=== PATIENT | female | born 1970 | race Two or more races ===

== ENCOUNTER 2016-10-29 03:26 | Observation (INO) | payer OTHER ==
[2016-10-29] MEDS ORDERED: SODIUM CHLORIDE 0.9% 1,000 ML IV STA (03:56)
[2016-10-29 04:11] LABS: Basophils # (A) 0.1 k/uL (0-0.2); Basophils % (A) 1 %; CH 31.8; CHCM 34.1; Eosinophils # (A) 0.1 k/uL (0-0.7); Eosinophils % (A) 1 %; HCT 42.2 % (34.0-46.0); HDW 2.39; HGB 13.8 gm/dL (11.4-16.0); Luc # (Auto) 0.19; Luc % (Auto) 2; Lymphocytes # (A) 3.3 k/uL (1.0-4.8); Lymphocytes % (A) 41 %; MCH 30.7 pg (25.0-35.0); MCHC 32.8 g/dL (31.0-37.0); MCV 93.6 fL (80.0-100.0); Mean Platelet Volume 8.5; Monocytes # (A) 0.4 k/uL (0-1.0); Monocytes % (A) 5 %; Neutrophils % (A) 50 %; RBC 4.51 m/uL (3.80-5.40); RDW 13.1 % (11.5-15.5); WBC (Perox) 8.57
--- NOTE | 2016-10-29 04:11 | ED ---
General Adult HPI - General Chief complaint: Chest Pain Stated complaint: LAILA Time Seen by Provider: 10/29/16 03:45 Source: patient, RN notes reviewed, old records reviewed Mode of arrival: wheelchair Limitations: no limitations - History of Present Illness Initial comments: This is a 38-year-old female the ER for evaluation of pain. Patient coming in for evaluation of chest pain chest pain left H her back and up into her jaw and jaw and down her arm. She also states pain comes a little bit on the left side of her chest. Patient has no history of similar chest pain, nonsmoker no high blood pressure no high cholesterol and no diabetes. Patient is noted to have no significant shortness of breath. No travel history no sick contacts no cough or congestion. Patient states her mother did not have a heart attack at a young age - Related Data Home Medications Medication Instructions Recorded Confirmed No Known Home Medications [No 10/29/16 10/29/16 Known Home Medications] Allergies Allergy/AdvReac Type Severity Reaction Status Date / Time No Known Allergies Allergy Verified 10/29/16 03:40 Review of Systems ROS Statement: Those systems with pertinent positive or pertinent negative responses have been documented in the HPI. ROS Other: All systems not noted in ROS Statement are negative. Past Medical History Past Medical History: No Reported History History of Any Multi-Drug Resistant Organisms: None Reported Additional Past Surgical History / Comment(s): tubal Past Psychological History: No Psychological Hx Reported Smoking Status: Never smoker Past Alcohol Use History: Occasional Past Drug Use History: None Reported General Exam Limitations: no limitations General appearance: alert, in no apparent distress, anxious Head exam: Present: atraumatic, normocephalic, normal inspection Eye exam: Present: normal appearance, PERRL, EOMI. Absent: scleral icterus, conjunctival injection, periorbital swelling ENT exam: Present: normal exam, mucous membranes moist Neck exam: Present: normal inspection. Absent: tenderness, meningismus, lymphadenopathy Respiratory exam: Present: normal lung sounds bilaterally. Absent: respiratory distress, wheezes, rales, rhonchi, stridor Cardiovascular Exam: Present: regular rate, normal rhythm, normal heart sounds. Absent: systolic murmur, diastolic murmur, rubs, gallop, clicks GI/Abdominal exam: Present: soft, normal bowel sounds. Absent: distended, tenderness, guarding, rebound, rigid Extremities exam: Present: normal inspection, full ROM, normal capillary refill. Absent: tenderness, pedal edema, joint swelling, calf tenderness Back exam: Present: normal inspection Neurological exam: Present: alert, oriented X3, CN II-XII intact Psychiatric exam: Present: normal affect, normal mood Skin exam: Present: warm, dry, intact, normal color. Absent: rash Course Vital Signs 10/29/16 10/29/16 03:36 04:15 Temperature 98.6 F Pulse Rate 116 H 69 Respiratory 20 14 Rate Blood Pressure 189/117 170/104 O2 Sat by Pulse 99 98 Oximetry - Reevaluation(s) Reevaluation #1: 10/29/16 05:54 Patient still remains with left-sided chest pain diaphoresis EKG Findings - EKG Comments: EKG Findings:: EKG shows normal sinus rhythm rate 93, AK 132, QRS 80, QTC 477 Medical Decision Making - Medical Decision Making Susan female here for evaluation of chest pain. Patient has positive family history for heart disease. Initial EKG and troponin are negative palpation be admitted for anticoagulation and cardiac evaluation. Sterile troponins and telemetry. CT was negative for PE - Lab Data Result diagrams: 10/29/16 03:50 10/29/16 03:50 Lab Results 10/29/16 10/29/16 10/29/16 Range/Units 03:50 03:50 03:50 WBC 8.0 (3.8-10.6) k/uL RBC 4.51 (3.80-5.40) m/uL Hgb 13.8 (11.4-16.0) gm/dL Hct 42.2 (34.0-46.0) % MCV 93.6 (80.0-100.0) fL MCH 30.7 (25.0-35.0) pg MCHC 32.8 (31.0-37.0) g/dL RDW 13.1 (11.5-15.5) % Plt Count 163 (150-450) k/uL Neutrophils % 50 % Lymphocytes % 41 % Monocytes % 5 % Eosinophils % 1 % Basophils % 1 % Neutrophils # 4.0 (1.3-7.7) k/uL Lymphocytes # 3.3 (1.0-4.8) k/uL Monocytes # 0.4 (0-1.0) k/uL Eosinophils # 0.1 (0-0.7) k/uL Basophils # 0.1 (0-0.2) k/uL PT (9.0-12.0) sec INR (<1.1) APTT (22.0-30.0) sec D-Dimer (<0.60) mg/L FEU Sodium 140 (137-145) mmol/L Potassium 3.2 L (3.5-5.1) mmol/L Chloride 109 H (98-107) mmol/L Carbon Dioxide 17 L (22-30) mmol/L Anion Gap 14 mmol/L BUN 11 (7-17) mg/dL Creatinine 0.70 (0.52-1.04) mg/dL Est GFR (MDRD) Af Amer >60 (>60 ml/min/1.73 sqM) Est GFR (MDRD) Non-Af >60 (>60 ml/min/1.73 sqM) Glucose 115 H (74-99) mg/dL Calcium 9.4 (8.4-10.2) mg/dL Magnesium 1.8 (1.6-2.3) mg/dL Total Bilirubin 0.9 (0.2-1.3) mg/dL AST 23 (14-36) U/L ALT 24 (9-52) U/L Alkaline Phosphatase 61 (38-126) U/L Total Creatine Kinase 57 (30-135) U/L CK-MB (CK-2) 0.3 (0.0-2.4) ng/mL CK-MB (CK-2) Rel Index 0.5 Troponin I <0.012 (0.000-0.034) ng/mL NT-Pro-B Natriuret Pep pg/mL Total Protein 7.3 (6.3-8.2) g/dL Albumin 4.3 (3.5-5.0) g/dL Lipase 182 (23-300) U/L 10/29/16 10/29/16 Range/Units 03:50 03:50 WBC (3.8-10.6) k/uL RBC (3.80-5.40) m/uL Hgb (11.4-16.0) gm/dL Hct (34.0-46.0) % MCV (80.0-100.0) fL MCH (25.0-35.0) pg MCHC (31.0-37.0) g/dL RDW (11.5-15.5) % Plt Count (150-450) k/uL Neutrophils % % Lymphocytes % % Monocytes % % Eosinophils % % Basophils % % Neutrophils # (1.3-7.7) k/uL Lymphocytes # (1.0-4.8) k/uL Monocytes # (0-1.0) k/uL Eosinophils # (0-0.7) k/uL Basophils # (0-0.2) k/uL PT 9.8 (9.0-12.0) sec INR 1.0 (<1.1) APTT 22.5 (22.0-30.0) sec D-Dimer 0.68 H (<0.60) mg/L FEU Sodium (137-145) mmol/L Potassium (3.5-5.1) mmol/L Chloride (98-107) mmol/L Carbon Dioxide (22-30) mmol/L Anion Gap mmol/L BUN (7-17) mg/dL Creatinine (0.52-1.04) mg/dL Est GFR (MDRD) Af Amer (>60 ml/min/1.73 sqM) Est GFR (MDRD) Non-Af (>60 ml/min/1.73 sqM) Glucose (74-99) mg/dL Calcium (8.4-10.2) mg/dL Magnesium (1.6-2.3) mg/dL Total Bilirubin (0.2-1.3) mg/dL AST (14-36) U/L ALT (9-52) U/L Alkaline Phosphatase (38-126) U/L Total Creatine Kinase (30-135) U/L CK-MB (CK-2) (0.0-2.4) ng/mL CK-MB (CK-2) Rel Index Troponin I (0.000-0.034) ng/mL NT-Pro-B Natriuret Pep 117 pg/mL Total Protein (6.3-8.2) g/dL Albumin (3.5-5.0) g/dL Lipase (23-300) U/L - Radiology Data Radiology results: report reviewed (Chest x-ray 2 view negative for acute disease, CTA negative for PE), image reviewed Critical Care Time Critical Care Time: Yes Total Critical Care Time: 31 Disposition Clinical Impression: Chest pain Disposition: ADMITTED IP TO THIS [facility] Condition: Good Instructions: Chest Pain (ED) Referrals: Martha Hooper MD [Primary Care Provider] - 1-2 days
[2016-10-29 04:20] LABS: ALT 24 U/L (9-52); AST 23 U/L (14-36); Alkaline Phosphatase 61 U/L (38-126); Anion Gap 14 mmol/L; Blood Urea Nitrogen 11 mg/dL (7-17); Calcium 9.4 mg/dL (8.4-10.2); Carbon Dioxide 17 mmol/L (22-30); Chloride 109 mmol/L (98-107); Glucose 115 mg/dL (74-99); Magnesium 1.8 mg/dL (1.6-2.3); Non-African American GFR(MDRD) >60 (>60 ml/min/1.73 sqM); Potassium 3.2 mmol/L (3.5-5.1); Sodium 140 mmol/L (137-145); Total Bilirubin 0.9 mg/dL (0.2-1.3); Total Protein 7.3 g/dL (6.3-8.2)
[2016-10-29 04:38] LABS: Partial Thromboplastin Time 22.5 sec (22.0-30.0); Prothrombin Time 9.8 sec (9.0-12.0)
[2016-10-29] MEDS ORDERED: POTASSIUM BICARB-CITRIC ACID 25 MEQ TABLET.EFF PO STA (04:49)
[2016-10-29] MEDS ORDERED: RX INFO: IV CONTRAST WAS GIVEN 1 EACH MISC MISCELLANE PRN (04:49)
[2016-10-29 05:00] LABS: Creatine Kinase 57 U/L (30-135)
[2016-10-29 05:13] LABS: Creatine Kinase MB 0.3 ng/mL (0.0-2.4); Troponin I <0.012 ng/mL (0.000-0.034)
--- NOTE | 2016-10-29 05:21 | XR ---
EXAMINATION TYPE: XR chest 2V DATE OF EXAM: 10/29/2016 4:42 AM COMPARISON: NONE HISTORY: Left-sided chest pain. TECHNIQUE: Frontal and lateral views of the chest are obtained. FINDINGS: There is no focal air space opacity, pleural effusion, or pneumothorax seen. The cardiac silhouette size is within normal limits. The osseous structures are intact. IMPRESSION: No acute cardiopulmonary process.
--- NOTE | 2016-10-29 05:34 | CT ---
EXAMINATION TYPE: CT angio chest DATE OF EXAM: 10/29/2016 5:10 AM COMPARISON: NONE HISTORY: Left sided chest pain, elevated d-dimer, R/O PE CT DLP: 148.40 mGycm Automated exposure control for dose reduction was used. CONTRAST: CTA scan of the thorax is performed with IV Contrast, patient injected with 65ml injected 35ml wasted mL of Omnipaque 350, pulmonary embolism protocol. MIP images are created and reviewed. 3D reconstr ucted images are created on an independent workstation and reviewed. FINDINGS: LUNGS: The lungs are grossly clear, there is no concerning parenchymal mass or nodule identified. T here is no pleural effusion or pneumothorax seen. The tracheobronchial tree is patent. MEDIASTINUM: There is satisfactory enhancement of the pulmonary artery and its branches, there is no CT evidence for pulmonary embolism. There are no greater than 1 cm hilar or mediastinal lymph nodes. No pericardial effusion is seen. Ascending aorta measures 3.2 cm in greatest AP diameter without s ignificant aneurysm. OTHER: No additional significant abnormality is seen. IMPRESSION: NO EVIDENCE OF ACUTE PULMONARY EMBOLISM. NO ACTIVE LUNG INFILTRATES.
[2016-10-29] MEDS ORDERED: HEPARIN SODIUM,PORCINE 5,000 UNIT/ML 1 ML VIAL IV ONE (05:51)
[2016-10-29] MEDS ORDERED: ASPIRIN 81 MG CHEW PO STA (05:51)
[2016-10-29] MEDS ORDERED: HEPARIN SODIUM,PORCINE 5,000 UNIT/ML 1 ML VIAL IV PRN (05:51)
[2016-10-29] MEDS ORDERED: MORPHINE SULFATE 2 MG/ML SYRINGE IVP STA (05:51)
[2016-10-29] MEDS ORDERED: MORPHINE SULFATE 4 MG/ML SYRINGE IV PRN (05:51)
[2016-10-29] MEDS ORDERED: LABETALOL SYRINGE 5 MG/ML IVP STA (05:55)
[2016-10-29] MEDS ORDERED: HEPARIN SODIUM,PORCINE/D5W PMX 25,000 UNIT in DEXTROSE/WATER 1 500ML.BAG IV SCH (06:00)
[2016-10-29] MEDS ORDERED: SODIUM CHLORIDE 0.9% 1,000 ML IV SCH (06:00)
[2016-10-29] MEDS: NITROGLYCERIN SL TABS 0.4 MG TAB SUBLINGUAL PRN ×2 (07:31→11:03)
[2016-10-29 11:03] LABS: Creatine Kinase 45 U/L (30-135)
--- NOTE | 2016-10-29 11:13 | P.CRDCN ---
History of Present Illness Consult date: 10/29/16 History of present illness: This is a 46-year-old female with no significant past medical history woke up around 3:00 last night with complaints of pain in the left shoulder and also in the back radiating down the arm and also to the upper chest area. The pain was about 7 on scale of 1-10. This was associated mild nausea and sweating. He doesn't appear to be respirophasic and did not change with the movements of the shoulder or arm in intensity. Patient was brought to the hospital and at about 8:00 in the morning patient was treated with sublingual nitro with relief of pain. Patient was also found to be very hypertensive. Her first EKG showed mild ST-T abnormalities in the inferolateral leads. Second EKG however showed normal findings. The 1 st troponin was within normal limits and at the time of my examination, patient claims the pain is coming back and rated as 4 on a scale of 1-10. We're in the process of treating her with sublingual nitroglycerin. May get a repeat EKG. We'll get bedside echocardiogram also. In the second troponin is normal and echocardiogram doesn't show any segmental wall motion defects, we may consider doing a nuclear stress test or stress echo for further evaluation. However if the troponin is abnormal or the echo cardiogram showed any segmental wall motion defects, patient may need cardiac catheterization for definitive diagnosis. Patient was also slightly hypokalemic and has received supplements . Review of Systems As per HPI Past Medical History Past Medical History: No Reported History Additional Past Medical History / Comment(s): Possibly chron's dx, hemorrhoids, HTN with . History of Any Multi-Drug Resistant Organisms: None Reported Past Surgical History: Tubal Ligation Additional Past Surgical History / Comment(s): R tubal with oophorectomy, anal abscess/fistula Past Anesthesia/Blood Transfusion Reactions: Postoperative Nausea & Vomiting ( PONV) Past Psychological History: No Psychological Hx Reported Additional Psychological History / Comment(s): Pt resides with her spouse and 4 children, one who is under the age of 18yrs. She is independent. Smoking Status: Never smoker Past Alcohol Use History: Occasional Past Drug Use History: None Reported - Past Family History Father Family Medical History: Cancer Additional Family Medical History / Comment(s): Father had colon cancer with mets. He of this at the age of 79yrs. Mother Family Medical History: Myocardial Infarction (NE) Additional Family Medical History / Comment(s): Mother had a NE at the age of 84 yrs. She is now 91yrs old. Medications and Allergies Home Medications Medication Instructions Recorded Confirmed Type No Known Home Medications [No 10/29/16 10/29/16 History Known Home Medications] Allergies Allergy/AdvReac Type Severity Reaction Status Date / Time No Known Allergies Allergy Verified 10/29/16 07:37 Physical Exam Vitals: Vital Signs Pulse Resp BP Pulse Ox 10/29/16 09:19 18 10/29/16 08:06 64 18 160/91 98 10/29/16 06:13 70 16 169/69 98 10/29/16 06:05 74 18 184/108 99 Intake and Output 10/28/16 10/29/16 10/29/16 22:59 06:59 14:59 Other: # Voids 1 GENERAL EXAM: Patient is alert and oriented and doesn't appear to be in any acute distress HEENT: Normocephalic. Normal reaction of pupils, equal size, normal range of extraocular motion. No erythema or exudates in the throat. NECK: No masses, no nuchal rigidity. CHEST: No chest wall deformity. LUNGS: Equal air entry with no crackles or wheeze. HEART: S1 and S2 normal with no audible mumurs or gallops. Regular rhythm, femorals equal on both sides.. ABDOMEN: No hepatosplenomegaly, normal bowel sounds, no guarding or rigidity. SKIN: No rashes CENTRAL NERVOUS SYSTEM: No focal deficits. EXTREMITIES: No cyanosis, clubbing or edema. Results 10/29/16 03:50 10/29/16 03:50 Current Medications Generic Name Dose Route Start Last Admin Trade Name Freq PRN Reason Stop Dose Admin Aspirin 325 mg 10/30/16 09:00 Aspirin PO DAILY [facility] Atorvastatin Calcium 80 mg 10/29/16 09:00 Lipitor PO DAILY [facility] Heparin Sodium (Porcine) 0 unit 10/29/16 05:51 Heparin IV PER PROTOCOL PRN Low PTT Protocol Sodium Chloride 1,000 mls @ 100 mls/hr 10/29/16 03:56 10/29/16 04:12 Saline 0.9% IV 10/29/16 13:55 100 mls/hr .Q10H STA Administration Heparin Sodium/Dextrose 25,000 500 mls @ 14.15 mls/hr 10/29/16 06:00 07:20 unit/ IV Solution IV 12 units/kg/hr .Q24H KATHLEEN 14.15 mls/hr Protocol Administration 12 UNITS/KG/HR Sodium Chloride 1,000 mls @ 100 mls/hr 10/29/16 06:00 Saline 0.9% IV .Q10H KATHLEEN Lisinopril 5 mg 10/30/16 09:00 Zestril PO DAILY KATHLEEN Metoprolol Tartrate 25 mg 10/29/16 09:00 Lopressor PO BID KATHLEEN Miscellaneous Information 1 each 10/29/16 04:49 Rx Info: Iv Contrast Was Given MISCELLANE 10/31/16 04:49 DAILY PRN Per Protocol Morphine Sulfate 4 mg 10/29/16 05:51 Morphine Sulfate (Inj) IV Q4HR PRN Chest Pain Nitroglycerin 0.4 mg 10/29/16 05:51 10/29/16 11:03 Nitrostat SUBLINGUAL 0.4 mg Q5M PRN Administration Chest Pain Intake and Output 10/28/16 10/29/16 10/29/16 22:59 06:59 14:59 Other: # Voids 1 EKG Interpretations (text) First EKG showed sinus rhythm with mild ST-T abnormalities in inferolateral leads. Second EKG showed normal findings Assessment and Plan (1) Hypokalemia Status: Acute (2) Chest pain Status: Acute (3) Hypertension Status: Acute Plan: We'll treat her with nitrates. Patient also needs beta blockers and possibly RASHMI inhibitor for control of her blood pressure and will get bedside echocardiogram. Further recommendations depend upon clinical course. If the troponins become positive or if echo cardiac rhythm shows any segmental wall motions, patient may need a cardiac cath. If not stress test to be considered
[2016-10-29 11:16] LABS: Creatine Kinase MB 0.2 ng/mL (0.0-2.4); Troponin I <0.012 ng/mL (0.000-0.034)
[2016-10-29] MEDS ORDERED: ONDANSETRON 4 MG/2 ML VIAL IVP PRN (13:20)
[2016-10-29 16:41] LABS: Creatine Kinase 46 U/L (30-135)
[2016-10-29 16:55] LABS: Creatine Kinase MB 0.2 ng/mL (0.0-2.4); Troponin I <0.012 ng/mL (0.000-0.034)
[2016-10-29] MEDS: METOPROLOL TARTRATE 25 MG TAB PO SCH ×2 (17:49→20:51)
[2016-10-29] MEDS: ATORVASTATIN 80 MG TAB PO SCH (17:49)
--- NOTE | 2016-10-29 20:16 | HP ---
DATE OF ADMISSION: CHIEF COMPLAINT: Chest pain. HISTORY OF PRESENT ILLNESS: Ms. Sheridan is a 46-year-old female without significant past medical history who came to the hospital with complaints of left-sided retrosternal chest pain with radiation to the left shoulder and down the left arm. Patient states it felt like some heaviness in the chest and associated with mild nausea and sweating. Patient did wake up from the sleep secondary due to pain. Otherwise the patient had EKG showing nonspecific ST-T wave changes and troponin is negative. Patient did have episode of chest pain again in the ER. Relief of symptoms with nitroglycerin. Patient also had episode of vomiting. Patient denied any recent illnesses. No ( ). No sick contacts at home. Denied any family history of coronary artery disease except mother had [place] at age of 80 years. Currently being followed by cardiology. REVIEW OF SYSTEMS: CONSTITUTIONAL: No fever, no chills. RESPIRATORY: No cough or sputum production. CARDIOVASCULAR: No chest pain or short of breath. ABDOMEN: No nausea, vomiting, or abdominal pain. GENITOURINARY: Negative. ENDOCRINE: Negative. PSYCHIATRY: Negative. SKIN: Negative. All other fourteen-point review of systems negative except as above. Past medical history includes possible Crohn's disease, hemorrhoids, hypertension with . PAST SURGICAL HISTORY: Tubal ligation, oophorectomy, ( ) fistula. SOCIAL HISTORY: Patient never a smoker. Occasional alcohol. Denied any drugs or IVDU. FAMILY HISTORY: Father had colon cancer with mets. He with this at age of 79 years. Mother had W[place] at the age of 84-years. No home medications. ALLERGIES: No known drug allergies. PHYSICAL EXAMINATION: A 46-year-old female lying in bed comfortably. Awake, alert, oriented, x3, appears to be in no apparent distress. VITALS: Blood pressure is 116/60, pulse is 70, respiratory rate 16, temperature afebrile, pulse ox is 98% on room air. HEENT: Atraumatic, normocephalic. Neck is supple. No JVD. CVS: S1, S2 heard. No murmurs, no gallop, no rub. LUNGS: Bilateral air entry is present. No wheezing. No crackles. Nonlabored breathing. ABDOMEN: Soft, nontender, bowel sounds present. POSTER: Alert and oriented x3. No focal neurological deficits. Cranial nerves grossly intact. EXTREMITIES: No edema. Pulses palpable bilaterally. No clubbing or cyanosis. PSYCHIATRIC: Cooperative. LABORATORY DATA: WBC 8.0, hemoglobin 13.8, platelets 1683, INR 1.0, d-dimer 0.68. Sodium 140, potassium 3.2, chloride 109, bicarb is 17, anion gap is 14. BUN 11, creatinine 0.7. Troponin x3 negative. Lipase is not elevated at 182. Chest x-ray: Nonacute cardiopulmonary process. EKG: Normal sinus rhythm. CT angiogram of the chest, no evidence of pulmonary embolism. IMPRESSION: 1. Chest pain/angina, ruled out acute coronary syndrome. Initial electrocardiograms and troponins are negative. Cardiology is planning for 2-D echocardiogram and further recommendations based on the clinical report and continue with telemetry monitoring. 2. Hypokalemia with potassium of 3.1. 3. Uncontrolled blood pressure. No history of hypertension. Patient does not take any antihypertensive medication at home. 4. Elevated D-dimer with CT angiogram negative for any pulmonary embolism. DISCUSSION AND PLAN: We will continue the heparin. 2-D echo was ordered. Cardiology has been consulted. Continue with serial EKG and troponins and follow up closely. Further recommendations based on clinical course. Anticipate discharge in the next 24 hours.
[2016-10-30 04:16] VITALS: RESP 16
[2016-10-30 06:00] LABS: Basophils % (A) 0 %; CH 31.6; CHCM 33.5; Eosinophils # (A) 0.1 k/uL (0-0.7); Eosinophils % (A) 1 %; HCT 39.3 % (34.0-46.0); HDW 2.35; HGB 12.8 gm/dL (11.4-16.0); Luc # (Auto) 0.13; Luc % (Auto) 2; Lymphocytes # (A) 2.3 k/uL (1.0-4.8); Lymphocytes % (A) 35 %; MCH 30.8 pg (25.0-35.0); MCHC 32.4 g/dL (31.0-37.0); MCV 94.9 fL (80.0-100.0); Mean Platelet Volume 8.9; Monocytes # (A) 0.4 k/uL (0-1.0); Monocytes % (A) 6 %; Neutrophils # (A) 3.5 k/uL (1.3-7.7); Neutrophils % (A) 55 %; RBC 4.15 m/uL (3.80-5.40); RDW 13.1 % (11.5-15.5); WBC 6.5 k/uL (3.8-10.6)
[2016-10-30 06:47] LABS: Cholesterol 185 mg/dL (<200); HDL Cholesterol 72 mg/dL (40-60); Triglycerides 164 mg/dL (<150)
[2016-10-30] MEDS ORDERED: LISINOPRIL 5 MG TAB PO SCH (09:00)
[2016-10-30] MEDS ORDERED: ASPIRIN 325 MG TAB PO SCH (09:00)
--- NOTE | 2016-10-30 10:48 | ECHOF ---
Referral Reason:heart function MEASUREMENTS -------- HEIGHT: 165.1 cm WEIGHT: 59.0 kg BP: 160/91 IVSd: 0.7 cm (0.6 - 1.1) LVIDd: 3.5 cm (3.9 - 5.3) LVPWd: 1.1 cm (0.6 - 1.1) IVSs: 1.0 cm LVIDs: 2.7 cm LVPWs: 0.9 cm LA Diam: 2.8 cm (2.7 - 3.8) LAESV Index (A-L): 15.33 ml/m Ao Diam: 2.4 cm (2.0 - 3.7) AV Cusp: 1.6 cm (1.5 - 2.6) LA Diam: 2.5 cm (2.7 - 3.8) MV EXCURSION: 14.382 mm (> 18.000) MV EF SLOPE: 68 mm/s (70 - 150) EPSS: 0.2 cm MV E Charles: 1.00 m/s MV DecT: 209 ms MV A Charles: 0.66 m/s MV E/A Ratio: 1.52 RAP: 5.00 mmHg RVSP: 26.68 mmHg FINDINGS -------- Sinus rhythm. This was a technically good study. LV size, wall thickness and systolic function are normal, with an EF greater than 55%. The right ventricle is normal in size. Normal LA size by volume 22+/-6 ml/m2. The right atrial size is normal. There is mild aortic valve sclerosis. There is no evidence of aortic regurgitation. Mild mitral annular calcification present. Mild mitral regurgitation is present. Mild tricuspid regurgitation present. There is no evidence of pulmonary hypertension. The right ventricular systolic pressure, as measured by Doppler, is 26.68mmHg. There is no pulmonic regurgitation present. The aortic root size is normal. There is no pericardial effusion. CONCLUSIONS -------- 1. LV size, wall thickness and systolic function are normal, with an EF greater than 55%. 2. There is mild aortic valve sclerosis. 3. Mild mitral annular calcification present. 4. Mild mitral regurgitation is present. 5. Mild tricuspid regurgitation present. 6. There is no evidence of pulmonary hypertension. 7. The right ventricular systolic pressure, as measured by Doppler, is 26.68mmHg. CLINICAL SOCIOLOGIST: Audrey Reynolds RDCS
[2016-10-30 12:49] VITALS: BP 133/91; TEMP 97.5
[2016-10-30 13:21] VITALS: PULSE 60
[2016-10-30] MEDS: METOPROLOL TARTRATE 25 MG TAB PO SCH (13:36)
[2016-10-30] MEDS: ATORVASTATIN 80 MG TAB PO SCH (13:36)
--- NOTE | 2016-10-30 14:21 | ECHOS ---
DATE OF SERVICE: 10/30/2016 AGE: 46Y SEX: F HT: 66" WT: 127 lbs. Protocol Matthais: X Others: Stress Echo Stage: 2 Dur. of Exercise: 5:00 *Heart Rate Blood Pressure *Rest: 79 Rest: 124/67 * *Max. Achieved: 161 Maximum BP: 176/111 85% PMHR: 146 100% PMHR: 172 *METS: 6.7 INDICATIONS: Chest pain. MEDICATIONS: - CLINICAL INFORMATION: History of chest pain, palpitations and family history of coronary artery disease. Resting ECG shows sinus rhythm, rate of 79 beats per minute, [place] interval of 0.16, QRS 0.08, normal ST-T waves. Utilizing a standard Matthias protocol, a symptom-limited treadmill test was performed. Patient exercised for total of 5 minutes, attained a peak heart rate of 161 beats per minute which is approximately 95% predicted maximum heart rate without any chest pain or pressure or ST segment deviations indicative of ischemia. Baseline images show normal thickening and contractility. The posterior segment shows improved contractility and thickening in all segments, consistent with normal study. IMPRESSION: 1. Normal stress echocardiogram. 2. Patient has average level of cardiopulmonary fitness as indicated by O2 max and METs.
--- NOTE | 2016-10-30 23:27 | P.DS ---
Providers Date of admission: 10/29/16 05:53 Expected date of discharge: 10/30/16 Attending physician: Itzel Patterson Primary care physician: Martha Hooper [facility] Course: 46-year-old female is admitted to the hospital with chest pain that is midsternal in nature nonradiating that started while patient was resting. Patient has had intermittent episodes a few days prior to admission. Patient does not have any previous history of CAD. She states that she has few kids and she is always stressed out at home. And attributes some of her symptoms to her stress. In the ER patient had a EKG was nonrevealing any ST-T wave changes. However with atypical symptoms patient underwent a stress echocardiogram H did not reveal any abnormalities. Patient was able to perform over 6 minutes and 30 seconds on the modified Matthias protocol. Physical exam Abdomen soft nontender no organomegaly Heart S1 and S2 heart regular rate and rhythm no murmurs appreciated Lungs good air entry clear to auscultation Neuro no focal motor or sensory deficits noted. Cranial nerves II-12 intact General in no acute distress alert oriented 3 Discharge diagnosis stress test was negative and hence patient will be discharged home #1 atypical chest pain , ACS was ruled out #2 new diagnosis of hypertension patient will be started on lisinopril 10 mg #3 underlying anxiety patient is recommended to follow up with Dr. Martha Hooper. Patient Condition at Discharge: Good Plan - Discharge Summary New Discharge Prescriptions: Lisinopril [Prinivil] 10 mg PO DAILY #30 tab Discharge Medication List Lisinopril [Prinivil] 10 mg PO DAILY #30 tab 10/30/16 [Rx] Follow up Appointment(s)/Referral(s): Martha Hooper MD [Primary Care Provider] - 1-2 days Patient Instructions/Handouts: Chest Pain (ED) Discharge Disposition: HOME SELF-CARE
== END 2016-10-30 16:00 | disposition home or self-care (01) ==
LOC: EC 03:26 → 3OBS 05:53
PROVIDERS: ADMIT Hospitalist; ATTEND Hospitalist
DX: R07.89 Other chest pain (principal); E87.6 Hypokalemia; I10 Essential (primary) hypertension; F41.9 Anxiety disorder, unspecified; R61 Generalized hyperhidrosis; R11.10 Vomiting, unspecified; Z80.0 Family history of malignant neoplasm of digestive organs; Z82.49 Family history of ischemic heart disease and other diseases of the circulatory system
CPT/HCPCS: 99291 ×2; 96375 ×3; 96376 ×2; 36415; 93005; 93017; 93306; 93350; 85379; 83880; 80061; 80053; 82550; 82553; 83690; 83735; 84484; 85025 ×2; 85610; 85730 ×2; 71020; 71275; 96365; 96366; G0378 ×2; J1644 ×2; Q9967; J2405; J2270